=== PATIENT | female | born 1935 | race Caucasian/White ===

== ENCOUNTER 2023-07-04 07:45 | Inpatient (IN) | payer MEDICARE, SELFPAY ==
[2023-06-27 13:54] VITALS: BMI 36.3
[2023-07-04] VITALS (16 sets, daily range): BP systolic 87–122; BP diastolic 49–78; PULSE 60–87; RESP 14–18; TEMP 36.1–36.9; O2SAT 90–98; BMI 36.3
--- NOTE | 2023-07-04 06:00 | DI.RAD.S_ITS ---
PROCEDURE: XR SHOULDER LT MIN 2V INDICATIONS: revision left total shoder TECHNIQUE: 1 views of the shoulder were acquired. COMPARISON: None. FINDINGS: Postsurgical changes reflecting left humeral arthroplasty. Hardware is intact. Soft tissue structures demonstrate postoperative change. Partially visualized pacemaker is present. Visualized portion of the left lung demonstrates mild costophrenic angle blunting. IMPRESSION: Left humeral postsurgical arthroplasty change. Dictated by: Anika Baxter M.D. on 07/04/2023 at 19:57 Approved by: Anika Baxter M.D. on 07/04/2023 at 19:58
[2023-07-04] MEDS: ACETAMINOPHEN 325 MG TABLET 975 MG PO (08:15)
[2023-07-04] MEDS: LACTATED RINGERS 1,000 ML 42 ML IV ×2 (08:15→12:31)
--- NOTE | 2023-07-04 10:04 | PM.PREOP ---
Pre-operative Note Interval Note History & Physical reviewed/Exam performed by Physician: Yes Changes to H&P: No
--- NOTE | 2023-07-04 10:34 | SUR.OPER ---
Beach chair on padded OR bed. Head on gel donut secured with tape over gauze. Non-operative arm secured <90 degrees abduction on padded arm board. Pillow under knees. Safety belt at thigh. Cloth tape over blanket over lower legs.
--- NOTE | 2023-07-04 10:50 | SUR.PREOP ---
Block start time [1030] . Monitoring initiated and maintained throughout procedure. Oxygen and medications given per anesthesiologist Patient remained stable throughout procedure, no adverse reactions noted. Block end time [1039].
[2023-07-04] MEDS: CEFAZOLIN 2 GM/100 ML PREMIX 100 ML IV ×2 (11:10→16:51)
[2023-07-04] MEDS: TRANEXAMIC ACID 1,000 MG VIAL 1000 MG INJ (11:15)
[2023-07-04] MEDS: BUPIVACAINE 0.25% (PF) 30 ML, EPINEPHrine 0.15 MG INJ (11:38)
--- NOTE | 2023-07-04 12:44 | PT-IP ANOTE ---
PT order received. PT reviewed chart and there is no op report available at this time. Will hold PT. PT will review op report and any surgeon precautions/comments before initiating PT assessment.
[2023-07-04] MEDS: ACETAMINOPHEN 325 MG TABLET 650 MG PO ×2 (16:49→23:01)
[2023-07-04] MEDS: OXYCODONE IR 5 MG TABLET PO ×2 (16:50→20:24)
[2023-07-04] MEDS: HYDROMORPHONE 0.5 MG INJ IV (17:48)
[2023-07-04] MEDS: diphenhydrAMINE 50 MG/ML VIAL IV (17:48)
--- NOTE | 2023-07-04 18:49 | PC.NURSE ---
Pt arrived to the floor from PACU at 1612. Pt was oriented to the room and how to use the call light for the TV, how to call staff, how to turn off/on the lights. Pt arrived with an aquocel dressing over her L shoulder that CDI, pt is also in a sling. Pt arrived on the unit on 2L O2 on NC. Pt is A&Ox4. Pt has her purse, glasses, cell phone, and cell phone kiln charger, FWW, personal bag, CPAP machine, shoes, and clothing.
[2023-07-04] MEDS: carvediloL 12.5 MG TABLET 25 MG PO (20:23)
[2023-07-04] MEDS: DOCUSATE 100 MG CAPSULE PO (20:23)
[2023-07-04] MEDS: SENNOSIDES 8.6 MG TABLET 17.2 MG PO (20:24)
[2023-07-04] MEDS: ASPIRIN EC 81 MG TABLET PO (20:24)
[2023-07-04] MEDS: IBUPROFEN 600 MG TABLET PO (23:00)
[2023-07-05] MEDS: CEFAZOLIN 2 GM/100 ML PREMIX 100 ML IV (00:24)
[2023-07-05 03:12] VITALS: BP 120/51; PULSE 60; RESP 16; TEMP 35.8; O2SAT 95
[2023-07-05] MEDS: ACETAMINOPHEN 325 MG TABLET 650 MG PO ×3 (04:27→22:00)
[2023-07-05] MEDS: IBUPROFEN 600 MG TABLET PO ×3 (04:28→21:59)
[2023-07-05 05:55] LABS: Hematocrit 32.1 % (36-46); Hemoglobin 11.1 g/dL (12.0-16.0); Mean Corpuscular HGB Conc 34.8 % (30-36); Mean Corpuscular Hemoglobin 33.6 PG (26-34); Mean Corpuscular Volume 96.8 fL (80-100); Platelet Count 132 X10^3/uL (150-400); Red Blood Cell Count 3.31 X10^6/uL (4.0-5.2); Red Cell Distribution Width 14.6 % (11.6-14.8); White Blood Cell Count 8.3 X10^3/uL (4.5-11.0)
[2023-07-05 08:06] VITALS: BP 94/37; PULSE 59; RESP 20; TEMP 35.7; O2SAT 95
[2023-07-05] MEDS: DOCUSATE 100 MG CAPSULE PO ×2 (09:36→21:59)
[2023-07-05] MEDS: ASPIRIN EC 81 MG TABLET PO ×2 (09:37→22:00)
[2023-07-05 09:38] VITALS: BP 94/37
[2023-07-05] MEDS: SERTRALINE 50 MG TABLET 100 MG PO (09:38)
--- NOTE | 2023-07-05 11:42 | CM.DANOTE ---
Initial DCP Assessment Note Pt is a 88yo female, resident of [place], now POD#1 from shoulder surgery by Dr Smith PCP: Gary Geller Payer: MCR/AARP Reviewed chart, pt discussed in multidisciplinary rounds this morning. Therapies pending today, OT order placed. Per chart review, patient's discharge plan had been discussed at length pre-operatively between patient, daughters Caty Wood (lives in [place]) P [phone] and Megan Chambers P [phone] ([place]) w/ SNO group; INPT status pre-approved for this patient, patient planned to discharge to SNF after her stay at . Met w/patient and her daughter Megan, introduced self and role. Patient lives alone in her apt in [place]; patient has hx at [facility] after heart surgery, no hx of HH. Patient does not have in home care, has a tobacco warehouse agent she has not found very helpful. Senior Resource guide provided. Discussed short term vs active directory specialist care plan. Daughter emphasizing this visit that family has been looking into nursing home care options as patient would benefit from addtl care at home. Reviewed dispo options; patient requests SNF referral to [facility], first choice. Back up choice would be any SNF located in [place]. PASRR completed for Hospital Exempt discharge, needs provider signature. Faxed initial clinical to [facility], JENI w/ Cherri in admissions. Addtl SNF referrals will be sent when therapy notes are available. CM team will plan to follow closely for coordination of discharge plan. Patient MCR ready for SNF discharge 07.07.23 [facility] Discharge Planning/Care Management CM Discharge Assessment Start: 07/05/23 11:35 Freq: Status: Active Protocol: Document 07/05/23 11:36 TORRI (Rec: 07/05/23 11:42 TORRI [id number]) Discharge Planning Assessment Assigned Dog Groomer SUMMER Gunn DPOA/Assigned Designee Name Megan Chambers, daughter ( [place]) Contact Information [phone] Advance Directives? Yes Advance Directives on File No History Provided By Patient,Family Member,Medical Record Prior Living Arrangements Apartment/Condo Comment in [place] Household Members none Comment Did not assess Independent with ADL's Yes: Poor activity tolerance Is patient alert and oriented? Yes: Some cognitive decline per notes Needs Assistance With Home Chores / Shopping Patient/Family Preference [facility] Facility Barriers to Discharge Yes Comment Lives alone, arm is in a sling , fragile at her baseline, uses a walker for ambulation Discharge Plan [facility] Facility Transportation Arrangement Likely cabulance Referrals Initiated [facility] Additional Comment Patient prefers [facility], clinical faxed. Has no preference for back up facilities, does prefer [facility] SNFs. If patient plan is SNF: Has PASSR been Yes: Needs signature from completed? provider for Hospital Exempt Inpatient Status as of 07/04/23 SNF/HH Preference 1. [facility] 2. Any [facility] facility Has Agency SNF been contacted Yes Whiteboard Updated in Patient Room with Yes name and ext. # of Dog Groomer
--- NOTE | 2023-07-05 12:15 | PT.IIE ---
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) History of hysterectomy History of left-sided carotid endarterectomy History of surgery History of total replacement of left shoulder joint History of total replacement of right shoulder joint Hx of bilateral cataract extraction Hx of heart artery stent Medical History (Last Updated 06/28/23 @ 12:39 by Nathaly Shaver RN) AAA (abdominal aortic aneurysm) (07/09/16) Anxiety about health CAD (coronary artery disease) Depression HLD (hyperlipidemia) HTN (hypertension) Hx of ventricular tachycardia Hypertrophic cardiomyopathy Junctional bradycardia Memory changes Neuropathy NILAM on CPAP (10/2013) Pacemaker (04/30/18) Physical Therapy Inpatient Evaluation/Re-Eval M1 PT/OT-IP Prior Functional Status Start: 07/04/23 12:43 Freq: NEEDED Status: Active Protocol: Document 07/05/23 12:15 AB (Rec: 07/05/23 14:04 AB [id number]) Medical Review Prior Functional Status Medical History Reviewed Yes Communication able to make needs known Mobility and Gait pt stated that she was modified independent with all mobilities and ambulation using a 4WW outdoors and furniture cruise/walks indoors . pt has h/o falls Social History Household Members none Living Arrangements Apartment/Condo Number of Floors (Floors) One Floor Number of Stairs To Enter/Railing? 1 step to enter up a curb and ~ 40 ft to enter the condo/apt Home Environment Standard Height Toilet,Tub/ Shower Home Equipment Four Wheel Walker,Raised Toilet Seat Without Armrests, Shower Seat without Backrest, Hand Held Shower,Grab Bars In Shower M2 PT-IP Current Condition Start: 07/04/23 12:43 Freq: NEEDED Status: Active Protocol: Document 07/05/23 12:15 AB (Rec: 07/05/23 14:04 AB [id number]) Physical Therapy Current Condition Current Condition Evaluation Date 07/05/23 Treatment Diagnosis s/p L TSA reverse; difficulty in walking Onset Date 07/04/23 M3 PT-IP Subjective Start: 07/04/23 12:43 Freq: NEEDED Status: Active Protocol: Document 07/05/23 12:15 AB (Rec: 07/05/23 14:04 AB [id number]) Subjective Physical Therapy Visit Type Type Initial Evaluation Visit Start Time 12:15 Visit Stop Time 13:07 Notes PT eval received and EMR reviewed. PT without operative note from surgeon and only had H&P in. No dx and guidelines set by surgeon. called surgeon's office and spoke with triage nurse and stated that they will let the doctor know. informed nurse regarding PT unable to see pt with guidelines/precautions set by surgeon. also informed manager zone Jeana. Jeana stated that pt plans to go to SNF and needing PT notes and she will call the surgeon. Jeana informed PT that she was able to talk to Dr. Smith and guidelines/precautions were set and will be in as verbal orders. Number of COMMERCIAL FRONT LOAD OPERATOR Visits 52 Therapy Pain Assessment Pain When Pain Assessed At Rest Pain Present Pain Present Pain Reported Location Right Hip Scale Used pain scale not stated Pain Management Techniques Distraction,Modification of Treatment,Re-positioning, Timing of Activity with Medications M4 PT-IP Mobility and Gait Start: 07/04/23 12:43 Freq: NEEDED Status: Active Protocol: Document 07/05/23 12:15 AB (Rec: 07/05/23 14:04 AB [id number]) PT-Bed Mobility Assessment Supine to Sit Supine to Sit Maximum Assistance,1 Person Assistance,2 Person Assistance ,Bedrails Sit to Supine Sit to Supine Maximum Assistance,2 Person Assistance PT-Transfer Assessment Sit to and From Stand Sit to and from Stand Maximum Assistance,2 Person Assistance,Use of Upper Extremities Equipment Transfer Assistive Device Gait Belt,Braden Walker Orthotic/Prosthetic Devices or Brace: Yes Transfers Transfer Destination Chair Transfer Technique Stand Step Pivot Transfer Ability Level of Assist Maximum Assistance,2 Person Assistance,Use of Upper Extremities Comments Mobility Comments NAC requested assist from PT to transfer pt for lunch. NAC stated that they attemped to transfer pt but pt's BLE are giving out . PT just gotten update from Jeana pillowcase maker regarding surgeon's guidelines/ precautions since no operative notes was in EMR. Found pt sitting on EOB with daughter and NAC in room. pt with c/o increase R hip pain. informed pt regarding L shoulder precautions. assisted pt with sling adjustement and completed elbow exercises. attempted to do MMT on BLE prior to standing but pt stated that she wants to go back to bed since she has a lot of R hip pain. stated that she had chronnic R hip pain but not as bad as right now. OT also in room. pt requiring max A x 2 for sit to supine. max A x 2 to total A x 2 for positioning in bed. Checked pt's R hip and MMT conducted. conducted trigger point release on hip and stretching. pt stated that pain was better and agreed to get up again. completed supine to sit max A x 1-2 and max cues. completed sit to stand max A x 2 and max cues and step transfer to chair using hemiwalker max A x 2 and max cues. positioned pt on the chair. call light and table placed within reach. Left pt with OT. Gait Assessment Comments Gait Comments unable at this time Stair Climbing Assessment Evaluation Level of Assist On Stairs Standby Assistance PT-Balance Assessment Sitting Balance and Reactions Static Sitting Balance Ability Good Dynamic Sitting Balance Ability Fair Standing Balance and Reactions Static Standing Balance Ability Poor Dynamic Standing Balance Ability Poor Device Used hemiwalker M5 PT-IP Objective Assessments Start: 07/04/23 12:43 Freq: NEEDED Status: Active Protocol: Document 07/05/23 12:15 AB (Rec: 07/05/23 14:04 AB [id number]) Orientation Orientation/Cognition Level of Alertness Alert Orientation Name,Situation Language Function Ability No Deficits Noted Safety Awareness Decreased Safety Awareness Memory Description Short Term Impaired Gross Range of Motion Lower Extremity ROM Assessment Within Functional Limits Strength Lower Extremity Strength Assessment Bilaterally Impaired Hip 4-/5 Knee 3+/5 Muscle Tone Muscle Tone WNL Yes M6 PT-IP Treatment Start: 07/04/23 12:43 Freq: NEEDED Status: Active Protocol: Document 07/05/23 12:15 AB (Rec: 07/05/23 14:04 AB [id number]) Physical Therapy Treatment Education Education Provided Precautions,Weight Bearing Status,Post-Op Packet,Safety M7 PT-IP Assessment and Plan Start: 07/04/23 12:43 Freq: NEEDED Status: Active Protocol: Document 07/05/23 12:15 AB (Rec: 07/05/23 14:04 AB [id number]) PT Summary Assessment and Plan Potential Rehabilitation Potential Fair Status of Condition at Evaluation Evolving Summary Impairments Pain,ROM,Strength,Balance, Coordination,Sensation,Tone, Cognition,Bed Mobility, Transfers,Gait,Activity Tolerance Assessment Summary Pt is an 88 y/o F s/p L TSA reverse POD 1. pt is NWB on LLE and with sling on. pt requiring max A x 2 with mobility and unable to ambulate at this time. pt will need SNF rehab to improve overall strength and mobility . will continue to assess. Goals Bed Mobility Goal Standby Assistance Transfer Goal Standby Assistance Gait Goal Standby Assistance,Braden Walker Gait Distance 50 Other Goals up/down 1 step using Vobiwalker SBA Days to Meet Goals 10 Frequency of Treatment Frequency Of Treatment Twice a Day Treatment Plan Physical Therapy Treatment Plan Bed Mobility Training,Transfer Training,Gait Training, Therapeutic Exercise,Balance Retraining,Post Op Education, Discharge Planning,Hot or Cold Pack,Neuromuscular Re-ed, Coordination Retraining,Manual Therapy Precautions Shoulder Precautions Sling,PROM,Internal Rotation to Body,No External Rotation, No Abduction,Forward Flexion to 90 degrees,Pendulums Weight Bearing Status Weight Bearing Status Non-Weight Bearing Allowed Weight Bearing Amount (enter % LUE NWB or #) (%) Recommendations To Nursing Amount of Assist Needed 2 Person Assist Discharge Recommendations PT Discharge Recommendations SNF Rehab Transportation Needs at Discharge Wheelchair/Cabulance
--- NOTE | 2023-07-05 12:20 | OT.IP.EVAL ---
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) Surgery Performed Operation Date: 07/04/23 09:45 Actual Procedures p Revision Shoulder Arthroplasty to Reverse Total Shoulder Arthroplasty(Left) - Bam Smith MD Past Medical History (Last Updated 06/28/23 @ 12:39 by Nathaly Shaver, RN) AAA (abdominal aortic aneurysm) (07/09/16) Anxiety about health CAD (coronary artery disease) Depression HLD (hyperlipidemia) HTN (hypertension) Hx of ventricular tachycardia Hypertrophic cardiomyopathy Junctional bradycardia Memory changes Neuropathy NILAM on CPAP (10/2013) Pacemaker (04/30/18) Surgical History (Last Updated 06/28/23 @ 12:39 by Nathaly Shaver RN) H/O aortic valve replacement History of coronary artery bypass graft x 2 (10/2013) History of hysterectomy History of left-sided carotid endarterectomy History of surgery History of total replacement of left shoulder joint History of total replacement of right shoulder joint Hx of bilateral cataract extraction Hx of heart artery stent Occupational Therapy Inpatient Evaluation/Re-Eval M1 PT/OT-IP Prior Functional Status Start: 07/05/23 14:17 Freq: NEEDED Status: Active Protocol: Document 07/05/23 14:17 [facility] (Rec: 07/05/23 14:33 [facility] [id number]) Medical Review Prior Functional Status Medical History Reviewed Yes Communication able to make needs known Mobility and Gait pt stated that she was modified independent with all mobilities and ambulation using a 4WW outdoors and furniture cruise/walks indoors . pt has h/o falls Activities of Daily Living and IADL's Pt states able to do her ADL and IADL needs but had pain. Social History Household Members none Living Arrangements Apartment/Condo Number of Floors (Floors) One Floor Number of Stairs To Enter/Railing? 1 step to enter up a curb and ~ 40 ft to enter the condo/apt Home Environment Standard Height Toilet,Tub/ Shower Home Equipment Four Wheel Walker,Raised Toilet Seat Without Armrests, Shower Seat without Backrest, Hand Held Shower,Grab Bars In Shower M2 OT-IP Current Condition Start: 07/05/23 14:17 Freq: Status: Active Protocol: Document 07/05/23 14:17 [facility] (Rec: 07/05/23 14:33 [facility] [id number]) Occupational Therapy Current Condition Current Condition Evaluation Date 07/05/23 Treatment Diagnosis S/P Left revers TSA Diagnosis Onset Date 07/04/23 Post Operative Precautions Shoulder Precautions Sling,PROM,Internal Rotation to Body,No External Rotation, No Abduction,Forward Flexion to 90 degrees,Pendulums Weight Bearing Status Weight Bearing Status Non-Weight Bearing Allowed Weight Bearing Amount (enter % LUE NWB or #) (%) M3 OT- IP Subjective and Pain Start: 07/05/23 14:17 Freq: Status: Active Protocol: Document 07/05/23 14:17 [facility] (Rec: 07/05/23 14:33 [facility] [id number]) OT- Subjective Occupational Therapy Visit Type Type Initial Evaluation Visit Start Time 12:20 Visit Stop Time 13:20 Occupational Therapy Visit Comments Patient Comments Pt needing lots of encouragement and agreed to get up. Patient/Caregiver Goals TO get better. OT Pain Assessment Pain When Pain Assessed At Rest Pain Present Pain Present Pain Reported Location Right Hip Pain Behaviors Facial Grimacing,Guarding, Holding Area M4 OT- IP ADL's Start: 07/05/23 14:17 Freq: Status: Active Protocol: Document 07/05/23 14:17 [facility] (Rec: 07/05/23 14:33 [facility] [id number]) OT ADZ-Gsjg-Czvisii General Evaluation Self-Feeding Ability Standby Assistance Comments OT Self-Feeding Comments Able to do after set-up. OT ADL-Grooming Comments OT Grooming Comments Pt will need assist with set- up. OT ADL-Oral Care Comments Oral Care Comments Not performed. OT ADL-Dressing General Eval Upper Body Dressing Ability Maximum Assistance Lower Body Dressing Ability Maximum Assistance Comments OT Dressing Comments MAXA for all sling management needs and assist to put on her socks. OT ADL-Toileting Comments OT Toileting Comments Pt not having to go at this time and use of Purewick earlier. Best to use a BSC at this time. OT ADL-Bathing Comments OT Bathing Comments Sponge bath more appropriate at this time. M5 OT- IP IADL's Start: 07/05/23 14:17 Freq: Status: Active Protocol: Document 07/05/23 14:17 [facility] (Rec: 07/05/23 14:33 [facility] [id number]) OT-Instrumental Activities of Daily Living Deficits IADL Deficits Identified Deficits Home Safety Awareness Awareness of Need for Assistance at Home Good Awareness Ability to Problem Solve Emergency Unable to Problem Solve Situations Home Safety Comments Pt a little groggy at this time and needing assist to answer home safety questions. Medication Management Medication Management Comments Pt states uses a pill organizer. Money Management Money Management Comments Pt does mostly automatic payments. Meal Preparation Meal Preparation Comments Pt will need assist. Concessionist Concessionist Comments Pt will need assist. M6 OT- IP Functional Cognition Start: 07/05/23 14:17 Freq: Status: Active Protocol: Document 07/05/23 14:17 [facility] (Rec: 07/05/23 14:33 [facility] [id number]) Cognitive Factors Limiting Selfcare Function Cognitive Ability Level of Alertness Alert Patient Orientation Name,Place,Situation Attention Span Ability Capable of Focused Attention, Unable to Sustain Attention Ability to Follow Commands Able to Follow One Step Commands with Increased Time, Able to Follow One Step Commands with Repetition Cognitive Comments Cognitive Assessment Comments Pt is very tangential and needing step by step cues to follow for mobility needs. Pt needing vc for safety with mobility needs. Pt is easily distracted. OT- Vision and Hearing OT- Hearing Assessment OT- Hearing Assessment WFL OT- Vision Assessment Vision Assessment Comments Pt able to read the clock accurately. M7 OT- IP Mobility and Balance Start: 07/05/23 14:17 Freq: Status: Active Protocol: Document 07/05/23 14:17 [facility] (Rec: 07/05/23 14:33 [facility] [id number]) OT- Bed Mobility Assessment Supine to Sit Supine to Sit Assist Maximum Assistance,1 Person Assistance,2 Person Assistance Sit to Supine Sit to Supine Assist Maximum Assistance,2 Person Assistance OT-Transfer Assessment Sit to and From Stand Sit to and from Stand Maximum Assistance,2 Person Assistance Transfers Transfer Ability Maximum Assistance,2 Person Assistance Technique Transfer Destination Bed,Chair Transfer Technique Stand Step Pivot Devices Transfer Assistive Devices Braden Walker Comments Mobility Comments Pt able to initiate moving her legs to the edge of the bed and then needing MAXAX 1-2 to get her trunk upright. MAXAX 2 to stand to hemiwalker and assist to steady her RLE and help move the hemiwalker for the transfer.Pt complaining of pain in her right leg. OT- Balance Assessment Sitting Balance and Reactions Static Sitting Balance Ability Good Dynamic Sitting Balance Ability Fair Standing Balance and Reactions Static Standing Balance Ability Poor Dynamic Standing Balance Ability Poor M8 OT- IP Objective Assessments Start: 07/05/23 14:17 Freq: Status: Active Protocol: Document 07/05/23 14:17 [facility] (Rec: 07/05/23 14:33 [facility] [id number]) OT Gross Range of Motion Upper Extremity Range of Motion Assessment Left Impaired ROM Impairments WFL at elbow to distal OT Strength Upper Extremity Strength Assessment Left Impaired M9 OT- IP Assessment and Plan Start: 07/05/23 14:17 Freq: Status: Active Protocol: Document 07/05/23 14:17 [facility] (Rec: 07/05/23 14:33 [facility] [id number]) OT Summary Assessment and Plan Potential Rehabilitation Potential Good Analytic Complexity at Evaluation Low Summary OT Impairments Pain,Range of Motion,Strength, Balance,Functional Cognition, Functional Mobility,Self- Feeding,Grooming,Dressing, Toileting,Bathing,Toilet Transfers,Shower Transfers, Activity Tolerance Progress Towards Goals Slow Progress due to Pain,Slow Progress due to Medical Issues,Slow Progress due to Activity Tolerance Assessment Summary Pt stil a bit groggy from sx. Pt main barriers are pain, decreased balance, and activity tolerance. Pt has had history of falls and best for pt to go to skilled rehab at this time. Pt is easily distract but pleasant and motivated to get better. Pt's family aware pt will need assist after going to rehab and are supportive and looking into options. Goals Self-Feeding Goal Independent Grooming Goal Independent Dressing Goal Minimal Assistance Toileting Goal Standby Assistance Bathing Goal Minimal Assistance Toilet Transfer Goal Independent Shower Transfer Goal Standby Assistance Days to Meet Goals 20 Frequency of Treatment Frequency Of Treatment Once a Day Treatment Plan OT Treatment Plan ADL Training,Functional Cognition Training,Functional Mobility,Patient/Family Education,Discharge Planning Discharge Recommendations OT Discharge Recommendations SNF Rehab Transportation Needs at Discharge Wheelchair/Cabulance
[2023-07-05] MEDS: OXYCODONE IR 5 MG TABLET PO ×2 (12:25→22:18)
--- NOTE | 2023-07-05 13:37 | P.PN_ITS ---
Subjective Subjective Interval history: Karina is a pleasant 88-year-old female who is postop day #1 s/p left shoulder total shoulder arthroplasty revision to left reverse total shoulder arthroplasty by Dr. Smith. Daughter is at bedside with patient during interview today. Daughter states she does not feel that she is able to adequately care for patient on her own at home. They feel strongly that a SNF is needed for patient's adequate postop recovery. Patient lives alone, does have family in the [facility]. Daughter reports patient has a history of frequent falls and is extremely nervous patient will fall on her new shoulder if she does not have adequate support. Patient also has bad knees and walks with the use of a walker baseline, she has had difficulty with mobility since surgery as she has been unable to use the walker the way she had before. Has post-op meds at home. Has no post-op PT set up yet. Has ice machine at home. Denies fever, chills, chest pain, shortness of breath, nausea, vomiting. Exam Vital Signs (past 8 hours): - 07/05/23 08:06 07/05/23 09:38 Temperature 96.2 F L Pulse Rate 59 L Respiratory Rate 20 Blood Pressure 94/37 L 94/37 L Pulse Oximetry 95 Oxygen Flow Rate 0 Oxygen Delivery Method Nasal Cannula Oxygen Flow Rate 0 Narrative Exam Narrative: Patient is lying in bed during interview today wearing her sling. Resp Effort & Inspection: normal respiratory effort and able to speak in complete sentences Cardio Other: Brisk capillary refill. Regular rate. Skin Other: Clean and dry Aquacel dressing in place over the left anterior shoulder. Ecchymosis surrounding Aquacel dressing. Neuro Other: Sensation intact throughout bilateral upper extremities. Extrem Other: Wiggles all fingers equally. 5/5 technology applications consultant strength. Objective Labs 07/05/23 05:25 Labs: Laboratory Results - last 24 hr 07/05/23 05:25 WBC 8.3 RBC 3.31 L Hgb 11.1 L Hct 32.1 L MCV 96.8 MCH 33.6 MCHC 34.8 RDW 14.6 Plt Count 132 L [facility] Medical History (Updated 06/28/23 @ 12:39 by Nathaly Shaver RN) CAD (coronary artery disease) Junctional bradycardia Hx of ventricular tachycardia Hypertrophic cardiomyopathy AAA (abdominal aortic aneurysm) (07/09/16) Anxiety about health Depression Memory changes HLD (hyperlipidemia) HTN (hypertension) NILAM on CPAP (10/2013) Neuropathy Pacemaker (04/30/18) Surgical History (Updated 06/28/23 @ 12:39 by Nathaly Shaver RN) History of left-sided carotid endarterectomy History of coronary artery bypass graft x 2 (10/2013) History of surgery History of total replacement of left shoulder joint History of total replacement of right shoulder joint History of hysterectomy Hx of heart artery stent H/O aortic valve replacement Hx of bilateral cataract extraction Social History household members: none Smoking Status: Former smoker alcohol intake: current Assessment & Plan Post-op Postoperative Procedures: Procedures Operation Date: 07/04/23 09:45 Actual Procedure Side Surgeon p Revision Shoulder Arthroplasty to Reverse Total Shoulder Arthroplasty Left Bam Smith MD Postoperative plan narrative: 1) Continue multimodal pain management. She has her post-op medications at home already and has been instructed on their use. Ice to the shoulder for additional pain control. Continue ASA b.i.d. for DVT prophylaxis. 2) Plan to d/c to SNF when available due to patients lack of support at home and mobility issues. 3) Keep Aquacel dressing clean and dry. No soaking the incision site in pools or tubs. No topical ointments or creams to the incision site. 4) Follow-up as scheduled at [facility] in 2 weeks for a postop appointment and wound check. The patient's and daughters questions were answered, patient is in agreement with the plan. Quality VTE Deep Vein Thrombosis/Pulmonary Embolism Present on Admission: No
--- NOTE | 2023-07-05 15:13 | CM.DPNOTE ---
LENCHO George Spoke with Cherri at [facility] P [phone] F [phone]; she feels patient will be fine to admit Saturday. Cherri needs to review therapy notes before making a final decision. 1515- Therapy notes in and faxed to Cherri at [facility]. Hospital exempt PASRR signed by Yodit Baxter this afternoon. Plan: Discharge likely to [facility] Saturday although not confirmed yet; transport needs to be determined (daughter Megan?). Hospital exempt PASRR completed and signed- pls fax to [facility] [phone] once SNF is secured. Keep patient and daughter Megan updated as discharge plan unfolds. TORRI
--- NOTE | 2023-07-05 15:47 | PC.NURSE ---
Pt A/O x 3 w/ periods of dementia noted. SL Right hand intact/patent. Pt worked w/ PT today. 2 PA w/ gait belt Pt right knee wants to buckle on occassion. Med x 1 w/Oxycodone w/good relief. Left arm sling in place. [place]wick in place. Call light w/in reach, bed alarm on for pt safety Continue w/plan of care.
[2023-07-05 21:00] VITALS: BP 113/40; PULSE 65; RESP 16; TEMP 36.3; O2SAT 96
[2023-07-05] MEDS: SENNOSIDES 8.6 MG TABLET 17.2 MG PO (21:58)
--- NOTE | 2023-07-06 01:57 | RT ---
At 0157 this morning, noted pt awake in bed, RT offered her CPAP, however, the pt refused.
[2023-07-06] MEDS: ACETAMINOPHEN 325 MG TABLET 650 MG PO ×4 (05:34→21:59)
[2023-07-06] MEDS: IBUPROFEN 600 MG TABLET PO ×4 (05:35→21:59)
[2023-07-06 07:56] VITALS: BP 103/51; PULSE 61; RESP 19; TEMP 36.7; O2SAT 94
[2023-07-06 08:38] VITALS: BP 103/51
[2023-07-06] MEDS: DOCUSATE 100 MG CAPSULE PO ×2 (08:46→20:28)
[2023-07-06] MEDS: SERTRALINE 50 MG TABLET 100 MG PO (08:47)
[2023-07-06] MEDS: ASPIRIN EC 81 MG TABLET PO ×2 (08:49→20:29)
--- NOTE | 2023-07-06 10:14 | P.PN_ITS ---
Subjective Subjective Interval history: Karina is a pleasant 88-year-old female who is postop day #2 s/p left shoulder total shoulder arthroplasty revision to left reverse total shoulder arthroplasty by Dr. Smith. Daughter is at bedside with patient during interview today. Daughter states she does not feel that she is able to adequately care for patient on her own at home. They feel strongly that a SNF is needed for patient's adequate postop recovery. Patient lives alone, does have family in the [facility]. Daughter reports patient has a history of frequent falls and is extremely nervous patient will fall on her new shoulder if she does not have adequate support. Patient also has bad knees and walks with the use of a walker baseline, she has had difficulty with mobility since surgery as she has been unable to use the walker the way she had before. Patient still has catheter in place, does not feel confident with being able to ambulate to the bathroom safely yet. Has post-op meds at home. Has no post-op PT set up yet. Has ice machine at home. Denies fever, chills, chest pain, shortness of breath, nausea, vomiting. Exam Vital Signs (past 8 hours): - 07/06/23 07:56 07/06/23 08:38 Temperature 98.1 F Pulse Rate 61 Respiratory Rate 19 Blood Pressure 103/51 L 103/51 L Pulse Oximetry 94 Oxygen Flow Rate 0 Oxygen Delivery Method Nasal Cannula Oxygen Flow Rate 0 Narrative Exam Narrative: Patient is sitting comfortably in bedside chair during interview today wearing her sling. Resp Effort & Inspection: normal respiratory effort and able to speak in complete sentences Cardio Other: Brisk capillary refill. Regular rate. Skin Other: Clean and dry Aquacel dressing in place over the left anterior shoulder. Ecchymosis surrounding Aquacel dressing. Neuro Other: Sensation intact throughout bilateral upper extremities. Extrem Other: Wiggles all fingers equally. 5/5 parking enforcement manager strength. Objective Labs 07/05/23 05:25 [facility] Medical History (Updated 06/28/23 @ 12:39 by Nathaly Shaver RN) CAD (coronary artery disease) Junctional bradycardia Hx of ventricular tachycardia Hypertrophic cardiomyopathy AAA (abdominal aortic aneurysm) (07/09/16) Anxiety about health Depression Memory changes HLD (hyperlipidemia) HTN (hypertension) NILAM on CPAP (10/2013) Neuropathy Pacemaker (04/30/18) Surgical History (Updated 07/06/23 @ 11:04 by Elizabeth Baxter PA-C) History of left-sided carotid endarterectomy History of coronary artery bypass graft x 2 (10/2013) History of surgery History of total replacement of left shoulder joint History of total replacement of right shoulder joint History of hysterectomy Hx of heart artery stent H/O aortic valve replacement Hx of bilateral cataract extraction Social History household members: none Smoking Status: Former smoker alcohol intake: current Assessment & Plan Assessment and plan (1) History of revision of total replacement of left shoulder joint: Status: Acute Plan Work with PT today on ambulation and plan to d/c catheter if patient is able to safely ambulate to the restroom. 1) Continue multimodal pain management. She has her post-op medications at home already and has been instructed on their use. Ice to the shoulder for additional pain control. Continue ASA b.i.d. for DVT prophylaxis. 2) Plan to d/c to SNF when available due to patients lack of support at home and mobility issues. Discharge likely to [facility] Saturday although not confirmed yet; transport needs to be determined, daughter does not feel comfortable transporting patient on her own. 3) Keep Aquacel dressing clean and dry. No soaking the incision site in pools or tubs. No topical ointments or creams to the incision site. 4) Follow-up as scheduled at [facility] in 2 weeks for a postop appointment and wound check. 5) Keep wearing sling, no ER past nuetral. The patient's and daughters questions were answered, patient is in agreement with the plan. Quality VTE Deep Vein Thrombosis/Pulmonary Embolism Present on Admission: No
--- NOTE | 2023-07-06 10:25 | PT.IPTN ---
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) Surgery Performed Operation Date: 07/04/23 09:45 Actual Procedures p Revision Shoulder Arthroplasty to Reverse Total Shoulder Arthroplasty(Left) - Bam Smith MD Physical Therapy Treatment Note M2 PT-IP Current Condition Start: 07/04/23 12:43 Freq: NEEDED Status: Active Protocol: Document 07/05/23 12:15 AB (Rec: 07/05/23 14:04 AB [id number]) Physical Therapy Current Condition Current Condition Evaluation Date 07/05/23 Treatment Diagnosis s/p L TSA reverse; difficulty in walking Onset Date 07/04/23 M3 PT-IP Subjective Start: 07/04/23 12:43 Freq: NEEDED Status: Active Protocol: Document 07/06/23 10:54 TS (Rec: 07/06/23 11:08 TS [id number]) Subjective Physical Therapy Visit Type Type Treatment Note Visit Start Time 10:25 Visit Stop Time 10:53 Notes Daughter in room Number of ADJUNCT ENGLISH INSTRUCTOR Visits 1 Physical Therapy Visit Comments Patient Comments Pt found resting in chair, continues to c/o pain in R hip /knee, reports L shoulder feels heavy. Pt is agreeable to PT. Therapy Pain Assessment Pain When Pain Assessed At Rest Pain Present Pain Present Pain Reported M4 PT-IP Mobility and Gait Start: 07/04/23 12:43 Freq: NEEDED Status: Active Protocol: Document 07/06/23 10:54 TS (Rec: 07/06/23 11:08 TS [id number]) PT-Transfer Assessment Sit to and From Stand Sit to and from Stand Moderate Assistance,1 Person Assistance Equipment Transfer Assistive Device Gait Belt,Braden Walker Orthotic/Prosthetic Devices or Brace: Yes Comments Mobility Comments STS from chair ModA x1 with hemiwalker and cues for RUE pushing from arm of chair. She ambulated ~15'CGA with hemiwalker, is unsteady and had some slight buckling of RLE. Pt reported fatigue and increased pain in R hip, requested to sit on EOB. STS from bed ModA with hemiwalker, pt ambulated back to chair with slow step to gait ~15' CGA. Pt was left back in chair , all needs met. Gait Assessment Gait Gait Assistance Required: Contact Guard Assist,1 Person Assist Distance (Feet) 30 Assistive Devices Assistive Device Gait Belt,Braden Walker Orthotic/Prosthetic Devices or Brace: No Gait Deviations General Gait Pattern Antalgic,Decreased Stride Length,Decreased Feet Clearance,Step-to Gait Factors Limiting Gait Function Factors Limiting Gait Function Decreased Activity Tolerance, Decreased Strength, Incoordination,Limited Range of Motion,Pain,Poor Balance, Poor Safety Awareness Comments Gait Comments See mobility comments PT-Balance Assessment Sitting Balance and Reactions Static Sitting Balance Ability Good Dynamic Sitting Balance Ability Fair Standing Balance and Reactions Static Standing Balance Ability Fair Dynamic Standing Balance Ability Fair Device Used hemiwalker M5 PT-IP Objective Assessments Start: 07/04/23 12:43 Freq: NEEDED Status: Active Protocol: Document 07/05/23 12:15 AB (Rec: 07/05/23 14:04 AB [id number]) Orientation Orientation/Cognition Level of Alertness Alert Orientation Name,Situation Language Function Ability No Deficits Noted Safety Awareness Decreased Safety Awareness Memory Description Short Term Impaired Gross Range of Motion Lower Extremity ROM Assessment Within Functional Limits Strength Lower Extremity Strength Assessment Bilaterally Impaired Hip 4-/5 Knee 3+/5 Muscle Tone Muscle Tone WNL Yes M6 PT-IP Treatment Start: 07/04/23 12:43 Freq: NEEDED Status: Active Protocol: Document 07/06/23 10:54 TS (Rec: 07/06/23 11:08 TS [id number]) Physical Therapy Treatment Education Education Provided Precautions,Weight Bearing Status,Post-Op Packet,Safety M7 PT-IP Assessment and Plan Start: 07/04/23 12:43 Freq: NEEDED Status: Active Protocol: Document 07/06/23 10:54 TS (Rec: 07/06/23 11:08 TS [id number]) PT Summary Assessment and Plan Potential Rehabilitation Potential Fair Summary Impairments Pain,ROM,Strength,Balance, Coordination,Sensation,Tone, Cognition,Bed Mobility, Transfers,Gait,Activity Tolerance Progress Towards Goals Progressing Toward Goals Assessment Summary Karina is making some progress with her mobility. She is ModA for STS from chair/bed with use of hemiwalker, she does require some cues for STS technique. She progressed her gait to ~2x15' with hemiwalker, has unsteady gait and fatigues quickly. She complains mostly of pain in R hip when ambulating and her shoulder feels heavy. Education was provided on her shoulder precautions. Deferred bed mobility until afternoon. PT continues to recommend SNF rehab to improve strength, functional mobility and activity tolerance before safe d/c home. Goals Bed Mobility Goal Standby Assistance Transfer Goal Standby Assistance Gait Goal Standby Assistance,Braden Walker Gait Distance 50 Other Goals up/down 1 step using hemiwalker SBA Days to Meet Goals 10 Frequency of Treatment Frequency Of Treatment Twice a Day Treatment Plan Physical Therapy Treatment Plan Bed Mobility Training,Transfer Training,Gait Training, Therapeutic Exercise,Balance Retraining,Post Op Education, Discharge Planning,Hot or Cold Pack,Neuromuscular Re-ed, Coordination Retraining,Manual Therapy Precautions Shoulder Precautions Sling,PROM,Internal Rotation to Body,No External Rotation, No Abduction,Forward Flexion to 90 degrees,Pendulums Weight Bearing Status Weight Bearing Status Non-Weight Bearing Allowed Weight Bearing Amount (enter % LUE NWB or #) (%) Recommendations To Nursing Amount of Assist Needed 2 Person Assist Discharge Recommendations PT Discharge Recommendations SNF Rehab Transportation Needs at Discharge Wheelchair/Cabulance
--- NOTE | 2023-07-06 11:23 | CM.DPNOTE ---
DCP Note CLINICAL RESEARCH SPEC reviewed EMR. Per previous CM notes, anticipate dc to [facility] [place] Saturday pending official acceptance. transport needed. CLINICAL RESEARCH SPEC spoke with Hannah at [facility] [place]. report likely can accept, just want to review therapy notes. CLINICAL RESEARCH SPEC faxed therapy notes (F [phone]) from Fri and Sat. CLINICAL RESEARCH SPEC met with pt and dtr in room. Pt and dtr excited about plan- acknowledge not official acceptance. Dtr reports cannot transport. Dtr and pt prefer w/c cabulance. Acknowledge verbal understanding there may be a cost associated. PT confirms transport via cabulance would likely be safest. Plan: Discharge likely to [facility] Saturday although not confirmed yet; transport with with wheel chair cabulance yet to be arranged due pending official acceptance. Hospital exempt PASRR completed and signed- pls fax to [facility] [phone] once SNF is secured. Keep patient and daughter Megan updated as discharge plan unfolds. SUMMER Pinon
--- NOTE | 2023-07-06 13:44 | PT.IPTN ---
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) Surgery Performed Operation Date: 07/04/23 09:45 Actual Procedures p Revision Shoulder Arthroplasty to Reverse Total Shoulder Arthroplasty(Left) - Bam Smith MD Physical Therapy Treatment Note M2 PT-IP Current Condition Start: 07/04/23 12:43 Freq: NEEDED Status: Active Protocol: Document 07/05/23 12:15 AB (Rec: 07/05/23 14:04 AB [id number]) Physical Therapy Current Condition Current Condition Evaluation Date 07/05/23 Treatment Diagnosis s/p L TSA reverse; difficulty in walking Onset Date 07/04/23 M3 PT-IP Subjective Start: 07/04/23 12:43 Freq: NEEDED Status: Active Protocol: Document 07/06/23 14:09 TS (Rec: 07/06/23 14:19 TS [id number]) Subjective Physical Therapy Visit Type Type Treatment Note Visit Start Time 13:44 Visit Stop Time 14:09 Number of PRINCIPAL CONSULTANT Visits 2 Physical Therapy Visit Comments Patient Comments Pt found resting in chair, is agreeable to PT. M4 PT-IP Mobility and Gait Start: 07/04/23 12:43 Freq: NEEDED Status: Active Protocol: Document 07/06/23 14:09 TS (Rec: 07/06/23 14:19 TS [id number]) PT-Transfer Assessment Sit to and From Stand Sit to and from Stand Minimal Assistance,Moderate Assistance,1 Person Assistance Equipment Transfer Assistive Device Gait Belt,Braden Walker Orthotic/Prosthetic Devices or Brace: No Comments Mobility Comments Pt scooted up in chair with RUE support. STS from chair with hemiwalker ModA, pt cued for RUE pushing from arm of chair. She ambulated in room ~ 15 CGA with hemiwalker and step to gait with WBOS. Pt required to sit EOB due to fatigue. STS from bed Babs with use of hemiwalker. She ambulated back to chair ~15' CGA w/hemiwalker. Pt was left in chair, daughter in room, all needs met. Gait Assessment Gait Gait Assistance Required: Contact Guard Assist,1 Person Assist Distance (Feet) 30 Assistive Devices Assistive Device Gait Belt,Braden Walker Orthotic/Prosthetic Devices or Brace: No Gait Deviations General Gait Pattern Antalgic,Decreased Stride Length,Decreased Feet Clearance,Step-to Gait Factors Limiting Gait Function Factors Limiting Gait Function Decreased Activity Tolerance, Decreased Strength, Incoordination,Limited Range of Motion,Pain,Poor Balance, Poor Safety Awareness Comments Gait Comments See mobility comments PT-Balance Assessment Sitting Balance and Reactions Static Sitting Balance Ability Good Dynamic Sitting Balance Ability Fair Standing Balance and Reactions Static Standing Balance Ability Fair Dynamic Standing Balance Ability Fair Device Used hemiwalker M5 PT-IP Objective Assessments Start: 07/04/23 12:43 Freq: NEEDED Status: Active Protocol: Document 07/05/23 12:15 AB (Rec: 07/05/23 14:04 AB [id number]) Orientation Orientation/Cognition Level of Alertness Alert Orientation Name,Situation Language Function Ability No Deficits Noted Safety Awareness Decreased Safety Awareness Memory Description Short Term Impaired Gross Range of Motion Lower Extremity ROM Assessment Within Functional Limits Strength Lower Extremity Strength Assessment Bilaterally Impaired Hip 4-/5 Knee 3+/5 Muscle Tone Muscle Tone WNL Yes M6 PT-IP Treatment Start: 07/04/23 12:43 Freq: NEEDED Status: Active Protocol: Document 07/06/23 14:09 TS (Rec: 07/06/23 14:19 TS [id number]) Physical Therapy Treatment Education Education Provided Precautions,Weight Bearing Status,Post-Op Packet,Safety M7 PT-IP Assessment and Plan Start: 07/04/23 12:43 Freq: NEEDED Status: Active Protocol: Document 07/06/23 14:09 TS (Rec: 07/06/23 14:19 TS [id number]) PT Summary Assessment and Plan Potential Rehabilitation Potential Fair Summary Impairments Pain,ROM,Strength,Balance, Coordination,Sensation,Tone, Cognition,Bed Mobility, Transfers,Gait,Activity Tolerance Progress Towards Goals Slow Progress due to Activity Tolerance Assessment Summary Karina continues continues to walk short distances in room, she quickly fatigues and requires seated rest breaks. She continues to require ModA to stand from chair and Babs from bed with use of hemiwalker. She is slighlty unsteady with her gait but has no buckling or LOB. PT continues to recommend SNF rehab at this time. Goals Bed Mobility Goal Standby Assistance Transfer Goal Standby Assistance Gait Goal Standby Assistance,Braden Walker Gait Distance 50 Other Goals up/down 1 step using hemiwalker SBA Days to Meet Goals 10 Frequency of Treatment Frequency Of Treatment Twice a Day Treatment Plan Physical Therapy Treatment Plan Bed Mobility Training,Transfer Training,Gait Training, Therapeutic Exercise,Balance Retraining,Post Op Education, Discharge Planning,Hot or Cold Pack,Neuromuscular Re-ed, Coordination Retraining,Manual Therapy Precautions Shoulder Precautions Sling,PROM,Internal Rotation to Body,No External Rotation, No Abduction,Forward Flexion to 90 degrees,Pendulums Weight Bearing Status Weight Bearing Status Non-Weight Bearing Allowed Weight Bearing Amount (enter % LUE NWB or #) (%) Recommendations To Nursing Amount of Assist Needed 2 Person Assist Discharge Recommendations PT Discharge Recommendations SNF Rehab Transportation Needs at Discharge Wheelchair/Cabulance
--- NOTE | 2023-07-06 15:45 | PC.NURSE ---
Pt alert/ forgetful at times, Denies discomfort when asked re: shoulder Sling remains in place, Aquacell dsg CDI; CSM intact. Sat in chair for meals w/o incidence. Call light w/in reach, chair alaarm on. Continue w/plan of care.
[2023-07-06 19:40] VITALS: BP 118/37; PULSE 60; RESP 16; TEMP 36.4; O2SAT 96
[2023-07-06] MEDS: SENNOSIDES 8.6 MG TABLET 17.2 MG PO (20:28)
[2023-07-06 21:30] VITALS: BP 108/42; PULSE 64
[2023-07-06 22:18] VITALS: BP 108/42; PULSE 64
[2023-07-07] MEDS: ACETAMINOPHEN 325 MG TABLET 650 MG PO ×3 (05:15→22:23)
[2023-07-07] MEDS: IBUPROFEN 600 MG TABLET PO ×3 (05:15→22:23)
[2023-07-07 08:22] VITALS: BP 138/53; PULSE 60; RESP 22; TEMP 36.1; O2SAT 96
--- NOTE | 2023-07-07 08:37 | CM.DPC ---
Addendum entered by Abena Palomares R.N. 07/07/23 12:45: Met with patient in her room, she is pleasant, hopes she can go to [facility]. Briefly discussed transportation, indicated that DC Planning can work on transportation with [facility], but may be a cost, patient is aware, can let her know once she is accepted. Stated that her daughter went back to [place] to get her van, don't think that it would be very comfortable. Let her know that this DC Tests Superintendent will follow up again with [facility]. Called [facility] back, spoke to Anny, the cyber workforce developer and manager in admissions. Stated, patient looks good, but don't really want to say yes until Cherri approves it, already texted her. Will follow up in the am with Cherri. Original Note: DCP Cont: Called over at [facility] and asked for the cyber workforce developer and manager to ensure that this patient would be accepted tomorrow. They indicated that the cyber workforce developer and manager will call this DC Tests Superintendent back today. Will then need to set up transportation most likely [facility], will need to discuss the cost with patient as well. Will ask patient if she has anyone that can transport her otherwise. P: DCP to continue to follow. Working on getting patient to [facility], but is pending acceptance. Abena Palomares RN/Feeder Associate
[2023-07-07] MEDS: polyethylene glycoL 3350 17 GM POWD.PACK PO (09:18)
[2023-07-07 09:19] VITALS: BP 138/53; PULSE 60
[2023-07-07] MEDS: DOCUSATE 100 MG CAPSULE PO ×2 (09:19→20:26)
[2023-07-07] MEDS: ASPIRIN EC 81 MG TABLET PO ×2 (09:19→20:26)
[2023-07-07] MEDS: SERTRALINE 50 MG TABLET 100 MG PO (09:19)
[2023-07-07] MEDS: carvediloL 12.5 MG TABLET 25 MG PO (09:19)
--- NOTE | 2023-07-07 11:48 | P.OP_ITS ---
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 Patient has failed conservative therapy including injections, physical therapy, anti-inflammatories and activity modification. After extensive discussion in clinic, they wished to go forward with surgery. Risks and benefits were described including the risk of infection, bleeding, damage to internal structures including nerves. We also discussed the risk of failure of surgery and the need for revision surgery as well as the risk of anesthesia. The patient expressed understanding with these risks and wished to go forward with surgery. Surgeon: Bam Smith Triage Registered Nurse: Elizabeth Baxter Anesthesia Type: General Operative Notes Findings: Findings: Deficient supraspinatus as noted on preoperative imaging and under direct visualization Closure Type: primary Specimen(s): none sent Prosthetic devices, grafts, tissues, transplants, or devices: Tornier implants Base plate: 29, full wedge Glenosphere: Eccentric 39 mm Stem: Perform long 2 Poly: +0 concentric Estimated Blood Loss (mL): 50 Blood products transfused: none Procedure in detail: Patient was seen in the preoperative holding unit. The correct left shoulder was identified and marked with my initials. Again we discussed the risks and benefits of surgery and they wished to go forward with surgery. The patient was brought back to the operating room and placed supine on the operating table. Smooth endotracheal intubation was performed by anesthesia. All prominences were padded and they were placed into the beach chair position. Intravenous antibiotics were given. The left shoulder was then prepped with the standard sterile preparation and draping. A time-out was then performed in my initials were again identified on the correct shoulder. 1 g of IV tranexamic acid was given. A standard deltopectoral incision was made. Skin flaps were made. The cephalic vein was identified and retracted laterally. This was protected throughout the remainder of the case (although there was a tear under the retractor at 1 point in the case and so it was cauterized). Sharp dissection was made along the deltoid, subacromial and subcoracoid space to release adhesions. The conjoined tendon was identified and the axillary nerve was palpated and continuous using the tug test. It was protected throughout the remainder of the case. A brown retractor was placed underneath the deltoid muscle and a darach retractor underneath the conjoint tendon. The anterior circumflex artery and associated veins on the lower border of the subscapularis were identified and tied off using 0-Vicryl. Biceps tendon was noted to be previously tenodesed. We then began a subscapularis peel. The subscapularis was tagged with an Ethibond suture. A 360 degree circumferential release of the subscapularis was performed with protection of the axillary nerve. The coracohumeral ligament was released at the base of the coracoid. The coracoacromial ligament was released about 1 cm. At this point it was noted that the shoulder was dislocated fixed posterior. After further releases, I was able to reduce the shoulder and then dislocate anterior. The rotator cuff was noted to be insufficient. Using a tuning fork instrument, the prosthetic humeral head was removed. The stem was well fixed and so we began by removing proximal bone around the fins starting with a quarter-inch skinny osteotome and working our way up. Unfortunately with the entire proximal ingrowth removed, the greater tuberosity fractured revealing the entire proximal part of the stem. The stem was still unable to be removed likely due to hard growth around the pedicle at the most inferior aspect of the stem. An osteotomy was then taken the length of the stem down the humerus between the pectoralis muscle and deltoid muscle insertions. After this was performed the stem was able to be removed easily. Fiber wires were tied sequentially around the fracture site in a modified racking hitch suture pattern and tensioned with an Arthrex tensioner. A provisional short stem was placed to protect the proximal bone and we turned our attention to the glenoid Curved osteotomes were used to shear off the existing polyethylene glenoid. Using a 15 degree wedge guide I then drilled a central hole through the previous existing center hole. I then touched it with a Reamer. The base plate was then implanted and screwed into place. The superior drill hole was drilled and filled in a locking fashion, followed by the inferior and anterior holes in locking fashion. A 39 eccentric glenosphere was then selected and screwed into place onto the base plate. Turning back to the humerus, the humeral head was delivered and trialed with a 0 concentric. The arm was taken through range of motion and this was felt to be stable. The trial was then removed and a dilute Betadine wash was then performed with 1 L of sterile saline. Drill holes were then placed in the shaft and through the greater tuberosity and sutures were passed. Cement was placed into the shaft and The final stem was then impacted into the humerus, with care to ensure that cement did not come proximal to where our tuberosity fixation was going to be. Several sutures were then used to reduce and fix the tuberosity into place. The shoulder was then reduced and again brought through range of motion and was felt to be stable. The subscapularis muscle was noted to be not mobile enough and would not reach the lesser tuberosity and so a repair of the subscapularis was not performed. The deltopectoral interval was then closed with #2 Ethibond. The skin was closed with 2-0 PDS and Monocryl followed by Aquacel dressing. Patient was awoken from anesthesia and brought back to the postoperative recovery unit without issue. They were placed into a sling. Assisting participation: This operation could not have been safely performed (without compromising the technical results or length of the procedure) without the assistance of a skilled surgical services director. The surgical services director was medically necessary for proper positioning, retraction and manipulation of instruments, proper exposure, graft prep, and manipulation of tissue. Complications: none Post-operative Condition: stable Disposition: PACU Plan for aftercare: Postoperative instructions: Sling to remain on for 6 weeks. No external rotation past neutral for 6 weeks. Okay for the sling to come off for shower. Okay to shower over the Aquacel dressing. If any water gets underneath the dressing, remove the dressing. First postoperative visit in 2 weeks.
--- NOTE | 2023-07-07 12:06 | PT.IPTN ---
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) Surgery Performed Operation Date: 07/04/23 09:45 Actual Procedures p Revision Shoulder Arthroplasty to Reverse Total Shoulder Arthroplasty(Left) - Bam Smith MD Physical Therapy Treatment Note M2 PT-IP Current Condition Start: 07/04/23 12:43 Freq: NEEDED Status: Active Protocol: Document 07/05/23 12:15 AB (Rec: 07/05/23 14:04 AB [id number]) Physical Therapy Current Condition Current Condition Evaluation Date 07/05/23 Treatment Diagnosis s/p L TSA reverse; difficulty in walking Onset Date 07/04/23 M3 PT-IP Subjective Start: 07/04/23 12:43 Freq: NEEDED Status: Active Protocol: Document 07/07/23 11:17 MB (Rec: 07/07/23 12:06 MB [id number]) Subjective Physical Therapy Visit Type Type Treatment Note Visit Start Time 11:17 Visit Stop Time 11:55 Number of [employer] Visits 0 Physical Therapy Visit Comments Patient Comments Pt is agreeable to PT. She con 't to c/o all over pain and mostly weakness and fear of legs giving way. Her left arm and sling feel heavy. Therapy Pain Assessment Pain When Pain Assessed At Rest Pain Present Pain Present Denied Pain M4 PT-IP Mobility and Gait Start: 07/04/23 12:43 Freq: NEEDED Status: Active Protocol: Document 07/07/23 11:17 MB (Rec: 07/07/23 12:06 MB [id number]) PT-Transfer Assessment Sit to and From Stand Sit to and from Stand Contact Guard Assistance,1 Person Assistance Equipment Transfer Assistive Device Gait Belt,Braden Walker Orthotic/Prosthetic Devices or Brace: No Transfers Transfer Destination Chair Transfer Technique Ambuation Transfer Ability Level of Assist Contact Guard Assistance,1 Person Assistance Comments Mobility Comments Pt c/o pain but PT particularly asks several times about pain location and number and then pt states she doesn't have pain: just more fear that her legs and back are going to give way. Pt requires encouragement for increasing gait distance today and she c/o her back feeling like it wants to give out. Bed mobility with HOB increased and right hand on right rail first mobility and then bed flat and no rail when returned to supine to get wicking stick removed. Gait Assessment Gait Gait Assistance Required: Contact Guard Assist,1 Person Assist Distance (Feet) 20 Assistive Devices Assistive Device Gait Belt,Braden Walker Orthotic/Prosthetic Devices or Brace: No Gait Deviations General Gait Pattern Antalgic,Decreased Stride Length,Decreased Feet Clearance,Step-to Gait Factors Limiting Gait Function Factors Limiting Gait Function Decreased Activity Tolerance, Decreased Strength, Incoordination,Limited Range of Motion,Pain,Poor Balance, Poor Safety Awareness Comments Gait Comments Pt with continual complaints about her back and legs feeling like they want to give out and she wants to sit down . BRYAN and no BP or pulse ox machine available for PT to check after short mobility, increased effort for very short mobility PT-Balance Assessment Sitting Balance and Reactions Static Sitting Balance Ability Good Dynamic Sitting Balance Ability Fair Standing Balance and Reactions Static Standing Balance Ability Fair Dynamic Standing Balance Ability Fair Device Used [employer] M5 PT-IP Objective Assessments Start: 07/04/23 12:43 Freq: NEEDED Status: Active Protocol: Document 07/05/23 12:15 AB (Rec: 07/05/23 14:04 AB [id number]) Orientation Orientation/Cognition Level of Alertness Alert Orientation Name,Situation Language Function Ability No Deficits Noted Safety Awareness Decreased Safety Awareness Memory Description Short Term Impaired Gross Range of Motion Lower Extremity ROM Assessment Within Functional Limits Strength Lower Extremity Strength Assessment Bilaterally Impaired Hip 4-/5 Knee 3+/5 Muscle Tone Muscle Tone WNL Yes M6 PT-IP Treatment Start: 07/04/23 12:43 Freq: NEEDED Status: Active Protocol: Document 07/07/23 11:17 MB (Rec: 07/07/23 12:06 MB [id number]) Physical Therapy Treatment Education Education Provided Precautions,Weight Bearing Status,Post-Op Packet,Safety Other Treatments Other Treatment Performed PT ed pt in use of thumb in thumb rest in sling, gentle cervical movement/ROM and gentle scapular retraction to help improve thoracic mobility and prevent scapular freezing with arm in sling: also for pain management, ed in use of little ball for squeezing M7 PT-IP Assessment and Plan Start: 07/04/23 12:43 Freq: NEEDED Status: Active Protocol: Document 07/07/23 11:17 MB (Rec: 07/07/23 12:06 MB [id number]) PT Summary Assessment and Plan Potential Rehabilitation Potential Fair Summary Impairments Pain,ROM,Strength,Balance, Coordination,Sensation,Bed Mobility,Transfers,Gait, Activity Tolerance Progress Towards Goals Slow Progress due to Activity Tolerance Assessment Summary Karina con't to have c/o about back and legs feeling like they might give way and it requires increased effort and pt with BRYAN with very minimal mobility today. Goals Bed Mobility Goal Independent Transfer Goal Independent Gait Goal Independent,Braden Walker Gait Distance 50 Other Goals up/down 1 step using hemiwalker SBA Days to Meet Goals 5 Frequency of Treatment Frequency Of Treatment Once a Day Treatment Plan Physical Therapy Treatment Plan Bed Mobility Training,Transfer Training,Gait Training, Therapeutic Exercise,Balance Retraining,Post Op Education, Discharge Planning,Hot or Cold Pack,Neuromuscular Re-ed, Coordination Retraining,Manual Therapy Precautions Shoulder Precautions Sling,PROM Other Precautions No ROM for 2 weeks, passive ROM Weight Bearing Status Weight Bearing Status Non-Weight Bearing Allowed Weight Bearing Amount (enter % LUE NWB or #) (%) Recommendations To Nursing Amount of Assist Needed 1 Person Assist Discharge Recommendations PT Discharge Recommendations SNF Rehab Transportation Needs at Discharge Wheelchair/Cabulance
--- NOTE | 2023-07-07 12:07 | PT-IP ANOTE ---
Op note is available this date (after PT treatment note written) and the following precautions: Postoperative instructions: Sling to remain on for 6 weeks. No external rotation past neutral for 6 weeks. Okay for the sling to come off for shower. Okay to shower over the Aquacel dressing. If any water gets underneath the dressing, remove the dressing. First postoperative visit in 2 weeks.
--- NOTE | 2023-07-07 13:55 | PC.NURSE ---
pt alert and oriented up to chair with assist, left arm/shoulder in sling and chronic weakness to right lower extermity. cms intact to left arm-denies pain at this time
[2023-07-07 20:09] VITALS: BP 110/56; PULSE 60; RESP 16; TEMP 36.3; O2SAT 95
[2023-07-07] MEDS: SENNOSIDES 8.6 MG TABLET 17.2 MG PO (20:26)
[2023-07-08] VITALS: BP 147/60; PULSE 62; RESP 19; TEMP 36; O2SAT 96
[2023-07-08 06:25] VITALS: BP 150/68; PULSE 60; RESP 18; TEMP 36.2; O2SAT 97
--- NOTE | 2023-07-08 07:50 | P.DS_ITS ---
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 Patient has failed conservative therapy including injections, physical therapy, anti-inflammatories and activity modification. After extensive discussion in clinic, they wished to go forward with surgery. Risks and benefits were described including the risk of infection, bleeding, damage to internal structures including nerves. We also discussed the risk of failure of surgery and the need for revision surgery as well as the risk of anesthesia. The patient expressed understanding with these risks and wished to go forward with surgery. Surgeon: Bam Smith Operations Officer Trust Department: Elizabeth Baxter Anesthesia Type: General Operative Notes Findings: Findings: Deficient supraspinatus as noted on preoperative imaging and under direct visualization Closure Type: primary Specimen(s): none sent Prosthetic devices, grafts, tissues, transplants, or devices: Tornier implants Base plate: 29, full wedge Glenosphere: Eccentric 39 mm Stem: Perform long 2 Poly: +0 concentric Estimated Blood Loss (mL): 50 Blood products transfused: none Discharge Providers Provider Date of admission: 07/04/23 07:45 Discharge Date: 07/08/23 Primary care physician: Gary Geller MD Consults: 07/04/23 06:00 Consult to Anesthesiology Routine Comment: Consulting Provider: Anesthesiologist Reason for consultation: Regional block for post operative pain control 07/04/23 10:05 Consult to Discharge Planning Routine Comment: Consult to Physical Therapy Evaluate & Treat Comment: Physician Instructions: Evaluate and Treat 07/05/23 11:02 Consult to Occupational Therapy Evaluate & Treat Comment: Physician Instructions: Evaluate and treat 07/05/23 12:24 Consult to Physical Therapy Evaluate & Treat Comment: No range of motionx2 wks, passive only Physician Instructions: patient should be non-weightbearing L UE Discharge provider: Bettina Sinha PA-C Summary Hospital Course Discharge Diagnosis: Left shoulder failed total shoulder arthroplasty; revision to reverse total shoulder arthroplasty Hospital Course: Ms Feng's hospital course was significant for slow progress w/ PT as she is walker-dependent and modifications are necessary d/t inability to bear weight on left arm. Plans were made for d/c to SNF as she does not currently have help at home. On the morning of POD# 4, the plan was for transfer to [facility]. She was eating and voiding without difficulty and her pain seemed to be controlled w/ Tylenol and IBPN; she complained more of pain in her right knee when she is trying to sleep. Exam Vital Signs (past 8 hours): - 07/08/23 00:00 07/08/23 06:25 Temperature 96.8 F L 97.2 F L Pulse Rate 62 60 Respiratory Rate 19 18 Blood Pressure 147/60 H 150/68 H Pulse Oximetry 96 97 Oxygen Flow Rate 0 0 Oxygen Delivery Method CPAP Oxygen Flow Rate 0 Narrative Exam Narrative: 5/5 hot shot strength, pt able to move fingers and wrist, sensation to touch intact throughout LLE. Aquacel dressing CDI w/ ecchymosis about distal dressing. No areas of skin breakdown around sling are noted. 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) History of surgery History of total replacement of left shoulder joint History of total replacement of right shoulder joint History of hysterectomy Hx of heart artery stent H/O aortic valve replacement Hx of bilateral cataract extraction Social History household members: none Smoking Status: Former smoker alcohol intake: current Discharge Assessment & Plan Assessment and Plan Assessment: Left shoulder failed total shoulder arthroplasty; revision to reverse total shoulder arthroplasty Plan of Treatment: Discharge to SNF, multimodal pain control, limited ROM of LUE, ASA BID for VTE prophylaxis, f/u in office in 2 weeks as scheduled. Discharge Plan Discharge Plan Patient Disposition: SNF Other facility: [facility] Discharge orders & Medications Prescriptions: New acetaminophen 325 mg Tablet 650 mg PO Q6H Qty: 120 0RF aspirin 81 mg Tablet,Delayed Release (Dr/Ec) 81 mg PO BID Qty: 90 0RF docusate sodium 100 mg Capsule 100 mg PO BID Qty: 60 0RF ibuprofen 600 mg Tablet 600 mg PO Q6H PRN (Reason: pain) Qty: 60 0RF oxycodone 5 mg Tablet 5 mg PO Q12H PRN (Reason: pain, severe) Qty: 20 0RF omeprazole 20 mg capsule,delayed release(DR/EC) 20 mg PO DAILY Qty: 30 1RF Rx Instructions: Take when taking IBPN Continued furosemide 40 mg Tablet 40 mg PO DAILY atorvastatin 40 mg Tablet 40 mg PO BEDTIME carvedilol 25 mg Tablet 25 mg PO BID Rx Instructions: must administer with a meal/food sertraline 100 mg Tablet 100 mg PO DAILY disopyramide phosphate 100 mg Capsule 100 mg PO BID aspirin 81 mg Tablet,Delayed Release (Dr/Ec) 81 mg PO DAILY acetaminophen 500 mg Tablet 1,000 mg PO BID amoxicillin 500 mg capsule 1,000 mg PO BID Follow up/Referrals: Bam Smith MD [Physician] - As previously scheduled Gary Geller MD [Primary Care Provider] - Diet/Activity/Treatments Diet: Diet as Tolerated Activity: Sling to left arm at all times. May have off to shower. No lifting more than 2 pounds w/ left hand. No external rotation of the shoulder past neutral. Cold/Heat Therapy: Ice to the shoulder for additional pain control Skin/Wound/Dressing Care Report to your healthcare provider any signs of infection, such as:: chills, fever, night sweats, unusual drainage and unusual redness Dressing: Keep dressing intact, clean, dry until 2 week postop appointment. No soaking the incision site in pools or tubs. No topical ointments or creams to the incision site. If dressing becomes saturated or dirty please contact our office for replacement dressing. [facility] Reason for rehabilitation: Post-operative therapy Rehab type: Physical therapy Visit Report/Discharge Packet Instructions: DI for Prescription Opioid Use, DI for Shoulder Replacement Stand Alone Forms: Patient Portal/API, Surgery Discharge Discharge Data Primary Care Provider: Gary Geller Quality VTE Deep Vein Thrombosis/Pulmonary Embolism Present on Admission: No
[2023-07-08 08:00] VITALS: BP 149/62; PULSE 60; RESP 16; TEMP 36.2; O2SAT 97
[2023-07-08] MEDS: ASPIRIN EC 81 MG TABLET PO (09:23)
[2023-07-08] MEDS: IBUPROFEN 600 MG TABLET PO (09:23)
[2023-07-08 09:24] VITALS: BP 150/68; PULSE 60
[2023-07-08] MEDS: ACETAMINOPHEN 325 MG TABLET 650 MG PO (09:24)
[2023-07-08] MEDS: carvediloL 12.5 MG TABLET 25 MG PO (09:24)
[2023-07-08] MEDS: SERTRALINE 50 MG TABLET 100 MG PO (09:25)
--- NOTE | 2023-07-08 09:48 | PT.IPTN ---
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) Surgery Performed Operation Date: 07/04/23 09:45 Actual Procedures p Revision Shoulder Arthroplasty to Reverse Total Shoulder Arthroplasty(Left) - Bam Smith MD Physical Therapy Treatment Note M2 PT-IP Current Condition Start: 07/04/23 12:43 Freq: NEEDED Status: Active Protocol: Document 07/05/23 12:15 AB (Rec: 07/05/23 14:04 AB [id number]) Physical Therapy Current Condition Current Condition Evaluation Date 07/05/23 Treatment Diagnosis s/p L TSA reverse; difficulty in walking Onset Date 07/04/23 M3 PT-IP Subjective Start: 07/04/23 12:43 Freq: NEEDED Status: Active Protocol: Document 07/08/23 10:05 ZF (Rec: 07/08/23 10:14 ZF [id number]) Subjective Physical Therapy Visit Type Type Treatment Note Visit Start Time 09:48 Visit Stop Time 09:59 Number of [employer]SE PATROLLER Visits 1 Physical Therapy Visit Comments Patient Comments Pt agreeable to short therapy session prior to shower before DC home today. M4 PT-IP Mobility and Gait Start: 07/04/23 12:43 Freq: NEEDED Status: Active Protocol: Document 07/08/23 10:05 ZF (Rec: 07/08/23 10:14 ZF [id number]) PT-Bed Mobility Assessment Supine to Sit Supine to Sit Standby Assistance,1 Person Assistance,Head of Bed Elevated,Bedrails Scooting Scooting to Edge of Bed Standby Assistance PT-Transfer Assessment Sit to and From Stand Sit to and from Stand Contact Guard Assistance,1 Person Assistance Equipment Transfer Assistive Device Gait Belt,Braden Walker Transfers Transfer Destination Chair Transfer Technique Stand Step Pivot Transfer Ability Level of Assist Contact Guard Assistance,1 Person Assistance Comments Mobility Comments Bed Mobility: Supine>Sitting EOB to R side, SBA w/HOB raised. STS from EOB requires CGA using R UE to pull up at HR. Stand pivot Transfer from EOB >Shower chair w/hemiwalker is SBA/CGA. M5 PT-IP Objective Assessments Start: 07/04/23 12:43 Freq: NEEDED Status: Active Protocol: Document 07/05/23 12:15 AB (Rec: 07/05/23 14:04 AB [id number]) Orientation Orientation/Cognition Level of Alertness Alert Orientation Name,Situation Language Function Ability No Deficits Noted Safety Awareness Decreased Safety Awareness Memory Description Short Term Impaired Gross Range of Motion Lower Extremity ROM Assessment Within Functional Limits Strength Lower Extremity Strength Assessment Bilaterally Impaired Hip 4-/5 Knee 3+/5 Muscle Tone Muscle Tone WNL Yes M6 PT-IP Treatment Start: 07/04/23 12:43 Freq: NEEDED Status: Active Protocol: Document 07/08/23 10:05 [email or web address] (Rec: 07/08/23 10:14 [id number]) Physical Therapy Treatment Education Education Provided Precautions,Weight Bearing Status,Post-Op Packet,Safety Other Treatments Other Treatment Performed PT ed pt in use of thumb in thumb rest in sling, gentle cervical movement/ROM and gentle scapular retraction to help improve thoracic mobility and prevent scapular freezing with arm in sling: also for pain management, ed in use of little ball for squeezing M7 PT-IP Assessment and Plan Start: 07/04/23 12:43 Freq: NEEDED Status: Active Protocol: Document 07/08/23 10:05 TAMIKO (Rec: 07/08/23 10:14 [id number]) PT Summary Assessment and Plan Potential Rehabilitation Potential Fair Summary Impairments Pain,ROM,Strength,Balance, Coordination,Sensation,Bed Mobility,Transfers,Gait, Activity Tolerance Progress Towards Goals Slow Progress due to Activity Tolerance Assessment Summary Pt does not complain of pain today. Is SBA/CGA for limited functional mobility training today. Goals Bed Mobility Goal Independent Transfer Goal Independent Gait Goal Independent,Braden Walker Gait Distance 50 Other Goals up/down 1 step using hemiwalker SBA Days to Meet Goals 5 Frequency of Treatment Frequency Of Treatment Once a Day Treatment Plan Physical Therapy Treatment Plan Bed Mobility Training,Transfer Training,Gait Training, Therapeutic Exercise,Balance Retraining,Post Op Education, Discharge Planning,Hot or Cold Pack,Neuromuscular Re-ed, Coordination Retraining,Manual Therapy Precautions Shoulder Precautions Sling,PROM Weight Bearing Status Weight Bearing Status Non-Weight Bearing Allowed Weight Bearing Amount (enter % LUE NWB or #) (%) Recommendations To Nursing Amount of Assist Needed 1 Person Assist Discharge Recommendations PT Discharge Recommendations SNF Rehab Transportation Needs at Discharge Wheelchair/Cabulance
--- NOTE | 2023-07-08 12:15 | CM.DPNOTE ---
DCP note ACID BLOWER reviewed EMR. dc order in. ACID BLOWER spoke with Cherri at [facility]. Able to accept today, no later than 2:30pm. ACID BLOWER updated RN and gave her report number. ACID BLOWER updated SENIOR QUALITY CONTROL TECHNICIAN Ruthie kindly agreed to send PASRR, meds, and dc order to [facility]. Ruthie placed PASRR and meds in chart for transport. [facility] does not have availability for transport today. Lvm with [facility], no response. ACID BLOWER spoke with dtr via phone and pt in room. Pt excited about acceptance and eager to dc. Updated them on struggles with w/c cabulance. Dtr in agreement with transporting pt herself if someone agrees to get pt in the car. SP[employer] ENGINEER agreed to assist with getting pt in car. Pt and dtr deny other CM needs at this time. Plan: dtr to transport pt today in POV to [facility]. late this morning. CM team will continue to follow as needed. [facility] [place]
== END 2023-07-08 11:40 | DRG 483 ==
PROVIDERS: Admitting Provider Orthopaedic Surgery; PCP Family Medicine; Referring Provider Orthopaedic Surgery; Visit Provider Orthopaedic Surgery
PROC: 0RPK0JZ Removal of Synthetic Substitute from Left Shoulder Joint, Open Approach (ICD-10-PCS; CPT 23472; principal; 2023-07-04 09:45)
DX: T84.028A Dislocation of other internal joint prosthesis, initial encounter (principal); M96.89 Other intraoperative and postprocedural complications and disorders of the musculoskeletal system; F32.A Depression, unspecified; I10 Essential (primary) hypertension; E78.5 Hyperlipidemia, unspecified; I25.10 Atherosclerotic heart disease of native coronary artery without angina pectoris; Z96.612 Presence of left artificial shoulder joint; Z87.891 Personal history of nicotine dependence
CPT/HCPCS: 36415; 64450; 73030; 76000; 85027; 97110; 97116; 97163; 97165; 97530; 97535; C1776; J0171; J0330; J0690; J1100; J1170; J1200; J1885; J2405; J2704; J3010